=== PATIENT | male | born 2000 | race Hispanic/Latino ===

== ENCOUNTER 2019-05-07 21:14 | Inpatient (IN) | payer SELFPAY ==
[2019-05-07] MEDS ORDERED: Ondansetron PF 4 MG/2 ML Vial ONE (21:41)
[2019-05-07 22:09] LABS: Band 2 % (5-11); Hemoglobin 19.3 g/dL (14.0-18.0); Lymphocytes 2 % (28-48); MDiff Complete? YES; Mean Corpuscular Hemoglobin 29.8 pg (25.0-35.0); Mean Corpuscular Volume 87.6 fL (78.0-98.0); Mean Platelet Volume 7.9 fL (7.4-10.4); Monocytes 4 % (0-4); Neutrophil 92 % (31-61); Platelet Count 394 thou/uL (130-400); RBC Distribution Width 12.5 % (11.5-14.5); Red Blood Cell (RBC) Count 6.48 mill/uL (4.00-5.20); White Blood Cell (WBC) Count 21.6 thou/uL (4.8-10.8)
[2019-05-07 22:11] LABS: ALT (SGPT) 25 U/L (8-55); AST (SGOT) 29 U/L (10-45); Alkaline Phosphatase 145 U/L (Less than 750); Anion Gap 33 mmol/L (10-20); BUN (Urea Nitrogen) 17 mg/dL (8.4-21.0); Bilirubin, Total 1.1 mg/dL (0.2-1.2); CK (CPK) 237 U/L (30-200); Calc. Creatinine Clearance 0 mL/min (70-130); Carbon Dioxide 24 mmol/L (22-29); Chloride 90 mmol/L (98-107); Estimated GFR-MDRD 23; Glucose 168 mg/dL (70-105); Potassium 3.7 mmol/L (3.5-5.1); Sodium 143 mmol/L (136-145)
[2019-05-07 22:13] LABS: Albumin Greater than 6.2 g/dL (3.5-5.0); Calcium 13.1 mg/dL (7.8-10.44); Globulin 5.8 g/dL (2.4-3.5)
[2019-05-07] MEDS ORDERED: Morphine 4 MG/ML VIAL ONE (22:25)
[2019-05-08] MEDS ORDERED: Sodium Chloride 0.9% 1,000 ML IV SCH (02:03)
[2019-05-08 02:08] VITALS: BMI 24.3
[2019-05-08] MEDS ORDERED: Acetaminophen 500 MG TAB PO PRN (02:54)
[2019-05-08] MEDS ORDERED: Senokot S 8.6-50 MG TAB PO PRN (03:18)
[2019-05-08] MEDS ORDERED: Loperamide HCl 2 MG CAP PO PRN (03:18)
[2019-05-08] MEDS ORDERED: Zolpidem Tartrate 5 MG TAB PO PRN (03:18)
[2019-05-08] MEDS ORDERED: Ondansetron PF 4 MG/2 ML Vial IVP PRN ×2 (03:18→03:47)
[2019-05-08] MEDS ORDERED: Acetaminophen 325 MG TAB PO PRN (03:18)
[2019-05-08] MEDS ORDERED: Bisacodyl 10 MG SUPP PR PRN (03:18)
[2019-05-08] MEDS ORDERED: Ondansetron ODT 4 MG TAB PO PRN (03:18)
[2019-05-08] MEDS ORDERED: HYDROcodone/Acetaminophen 5/325 mg Tablet PO PRN (03:18)
[2019-05-08] MEDS ORDERED: Ondansetron ODT 4 MG TAB SL PRN (03:47)
--- NOTE | 2019-05-08 04:18 | HP ---
PRIMARY CARE PHYSICIAN: [facility]. REASON FOR ADMISSION: Acute kidney failure. HISTORY OF PRESENT ILLNESS: A 18-year-old male who was initially evaluated at [facility] Emergency Room. The patient went there for acute onset of nausea, vomiting, and cramps. 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 It was very hot entire day and he worked almost entire day. He also reports that he drinks less fluid than normal. He was not used to with this type of work as well. When he finished work and he was going back to home, on the way, he started feeling bad, he was having nausea, vomiting, and cramps. He went home. He took shower, and subsequently, he was experiencing right-sided chest cramps, body cramps, nausea, and vomiting. He was not able to keep anything down and that is why he was taken to local emergency room where he had routine blood test done, which showed acute kidney failure. The patient denies any NSAID abuse. He denies any chronic bone pain. He denies any diarrhea. He denies any constipation. He denies any fever, chills, UTI symptoms. He was pretty much healthy. REVIEW OF SYSTEMS: CONSTITUTIONAL: Negative for weight loss or gain, ability to conduct usual activities. SKIN: Negative for rash, itching. EYES: Negative for double vision, pain. ENT/MOUTH: Negative for nose bleeding, neck stiffness, pain, tenderness. CARDIOVASCULAR: Negative for palpitations, dyspnea on exertion, orthopnea. RESPIRATORY: Negative for shortness of breath, wheezing, cough, hemoptysis, fever or night sweats. GASTROINTESTINAL: Negative for poor appetite, abdominal pain, heartburn, nausea, vomiting, constipation, or diarrhea. GENITOURINARY: Negative for urgency, frequency, dysuria, nocturia. MUSCULOSKELETAL: Negative for pain, swelling. NEUROLOGIC/PSYCHIATRIC: Negative for anxiety, depression. ALLERGY/IMMUNOLOGIC: Negative for skin rash, bleeding tendency. Please see my HPI for pertinent positives and negatives. All other review of systems reviewed and negative except as mentioned in the HPI. PAST MEDICAL HISTORY: Reviewed and negative. PAST SURGICAL HISTORY: Reviewed and negative. PAST PSYCHIATRIC HISTORY: Reviewed and negative. SOCIAL HISTORY: The patient is working 2 jobs, partly in [employer] business as well as he also does other job. He denies any smoking. He denies any alcohol abuse. He denies any other illicit drug abuse. FAMILY HISTORY: No family history of coronary artery disease, stroke, or cancer. ALLERGIES: NO KNOWN DRUG ALLERGIES. CURRENT HOME MEDICATIONS: The patient is not taking any medication at home. EMERGENCY ROOM COURSE: The patient was given total 3 L of IV fluid, morphine 2 mg, and Zofran 4 mg. PHYSICAL EXAMINATION: VITAL SIGNS: On arrival, blood pressure 105/87, pulse 108, respiratory rate 16, temperature 98.3, saturation 97% on room air. Weight 63 kg. GENERAL: The patient is currently alert, oriented, no acute distress. HEENT: Head is normocephalic, atraumatic. Eyes; pupils are round and reactive to light. Extraocular muscle intact. ENT; oropharynx within normal limits. Moist mucous membranes. No oral lesions. No pharyngeal erythema. No exudate. NECK: Supple. No JVD. No thyromegaly. No carotid bruit. No jugular venous distention. LUNGS: Clear to auscultation without any rhonchi or rales. CARDIAC: S1 and S2, regular. No murmur. No gallop. No rub. ABDOMEN: Soft. Bowel sounds present. Nontender. Nondistended. No organomegaly. No mass. No suprapubic tenderness. CHEST WALL: The patient does have chest wall tenderness on the right lower quadrant. BACK: Unremarkable. No CVA tenderness. EXTREMITIES: Upper extremities; passive movement of all joints are normal. Lower extremities, no edema. Good distal pulsation. SKIN: No skin rash. HEMATOLOGICAL SYSTEM: No lymphadenopathy. PSYCHIATRIC: Normal affect. NEUROLOGIC: Nonfocal examination. SIGNIFICANT LABORATORY DATA: EKG showing normal sinus rhythm, within normal limit. CBC; WBC 21.6, hemoglobin 19.3, platelets 394 with left shift. BMP; sodium 143, potassium 3.7, chloride 90, carbon dioxide 24, anion gap 33, BUN 17, creatinine 3.48, glucose 168, calcium 13.1, osmolality 305. LFT; AST 29, ALT 25, alkaline phosphatase 145, CK 237, total protein 12.0, albumin greater than 6.2, globulin 5.8, lipase 9. ASSESSMENT AND PLAN: 1. Acute kidney failure, most likely related with dehydration from working in hot humid weather entire day, prerenal etiology. 2. Hypercalcemia, most likely related with dehydration. 3. Hyperproteinemia, likely related with dehydration. 4. Rhabdomyolysis, likely related with exertion of all activity in hot humid weather. 5. Leukocytosis with left shift and elevated hemoglobin, likely due to hemoconcentration and stress response. PLAN: 1. The patient will be admitted to the hospital. He will be given IV fluid at 150 mL/h. Given his sick hypercalcemia, hyperproteinemia, and acute kidney failure, we will check serum protein electrophoresis. The patient does not have any clinical picture of multiple myeloma, but we will exclude that possibility. We will check urine sodium, protein, creatinine, urinalysis, renal ultrasound, and Nephrology consultation. We will monitor renal function daily. We will avoid nephrotoxins agent. We will monitor input and output chart. 2. Deep venous thrombosis prophylaxis with heparin 5000 units subcu b.i.d. and GI prophylaxis with Pepcid 20 mg daily. CODE STATUS: The patient is full code. The patient does not have any surrogate decision maker. DISPOSITION PLAN: Based on clinical course, we are expecting the patient's stay in hospital more than 2 midnights. Plan of care discussed with the patient in detail. Job ID: [id number]
[2019-05-08] MEDS: Sodium Chloride 0.9% 1,000 ML IV SCH ×4 (04:47→15:38)
[2019-05-08 05:09] LABS: Phosphorus 5.1 mg/dL (2.3-4.7)
[2019-05-08 05:16] LABS: ALT (SGPT) 15 U/L (8-55); AST (SGOT) 22 U/L (10-45); Alkaline Phosphatase 91 U/L (Less than 750); Anion Gap 15 mmol/L (10-20); BUN (Urea Nitrogen) 17 mg/dL (8.4-21.0); CK (CPK) 469 U/L (30-200); Calc. Creatinine Clearance 78 mL/min (70-130); Calcium 9.7 mg/dL (7.8-10.44); Carbon Dioxide 30 mmol/L (22-29); Chloride 98 mmol/L (98-107); Estimated GFR-MDRD 64; Globulin 2.5 g/dL (2.4-3.5); Glucose 113 mg/dL (70-105); Potassium 4.4 mmol/L (3.5-5.1); Protein, Total 7.5 g/dL (6.0-8.3); Sodium 139 mmol/L (136-145)
[2019-05-08 06:02] LABS: #Lymphocytes 0.9 thou/uL (1.20-3.40); #Monocytes 0.7 thou/uL (0.11-0.59); %Basophils 0.3 % (0.0-1.0); %Eosinophils 0.1 % (0.0-10.0); %Lymphocytes 6.2 % (28.0-48.0); %Monocytes 5.2 % (0.0-4.0); %Neutrophils 88.3 % (31.0-61.0); Hemoglobin 14.3 g/dL (14.0-18.0); Mean Corpuscular HGB CONC 33.7 g/dL (32.0-36.0); Mean Corpuscular Hemoglobin 29.9 pg (25.0-35.0); Mean Corpuscular Volume 88.7 fL (78.0-98.0); Mean Platelet Volume 8.1 fL (7.4-10.4); Platelet Count 271 thou/uL (130-400); RBC Distribution Width 12.1 % (11.5-14.5); Red Blood Cell (RBC) Count 4.78 mill/uL (4.00-5.20); White Blood Cell (WBC) Count 13.6 thou/uL (4.8-10.8)
[2019-05-08] MEDS: Heparin 5,000 UNITS/ML VIAL SC SCH ×2 (08:18→20:42)
[2019-05-08] MEDS: Famotidine 20 MG TAB PO SCH (08:18)
--- NOTE | 2019-05-08 11:16 | PDOC.HOSPP ---
- Subjective Encounter Date: 05/08/19 Encounter Time: 11:14 Subjective: Doing better. No nausea. - Objective Vital Signs & Weight: Vital Signs (12 hours) Temp Pulse Resp BP Pulse Ox 05/08/19 07:27 98.8 F 73 16 112/56 L 98 05/08/19 05:15 98.7 F 77 12 98/55 L 99 05/08/19 01:52 98.9 F 88 18 108/63 98 Weight Weight 145 lb 12.8 oz I&O: 05/07/19 05/08/19 05/09/19 06:59 06:59 06:59 Intake Total 962 Output Total 120 Balance 842 Result Diagrams: 05/08/19 04:12 05/08/19 04:12 Hospitalist ROS - Medication Medications: Active Medications Generic Name Dose Route Start Last Admin Trade Name Freq PRN Reason Stop Dose Admin Famotidine 20 mg 05/08/19 09:00 05/08/19 08:18 Pepcid PO 20 mg DAILY SLY Administration Heparin Sodium (Porcine) 5,000 units 05/08/19 09:00 05/08/19 08:18 Heparin SC 5,000 units BID SLY Administration Sodium Chloride 1,000 mls @ 150 mls/hr 05/08/19 03:30 05/08/19 08:16 Normal Saline 0.9% IV 1,000 mls .[id number] SLY Administration - Exam General Appearance: NAD, awake alert ENT: normocephalic atraumatic, no oropharyngeal lesions, moist mucosa Neck: supple, symmetric, no JVD, no thyromegaly, no lymphadenopathy, no carotid bruit Heart: RRR, no murmur, no gallops, no rubs, normal peripheral pulses Respiratory: CTAB, no wheezes, no rales, no ronchi, normal chest expansion, no tachypnea, normal percussion Gastrointestinal: soft, non-tender, non-distended, normal bowel sounds, no palpable masses, no hepatomegaly, no splenomegaly, no bruit Extremities: no cyanosis, no clubbing, no edema Extremeties - other findings: No TTP of the muscles. Skin: normal turgor, no lesions, no rashes Neurological: CN's grossly intact, normal sensation to touch, no weakness, no focal deficits, no new deficit Musculoskeletal: normal tone, normal strength, no muscle wasting Psychiatric: normal affect, normal behavior, A&O x 3 Hosp A/P (1) Dehydration Code(s): E86.0 - DEHYDRATION Status: Acute (2) Heat exhaustion Code(s): T67.5XXA - HEAT EXHAUSTION, UNSPECIFIED, INITIAL ENCOUNTER Status: Acute (3) Acute kidney failure Status: Acute (4) Hypercalcemia Code(s): E83.52 - HYPERCALCEMIA Status: Acute (5) Rhabdomyolysis Code(s): M62.82 - RHABDOMYOLYSIS Status: Acute (6) Leukocytosis Code(s): D72.829 - ELEVATED WHITE BLOOD CELL COUNT, UNSPECIFIED Status: Acute - Plan Improving. Calcium better. Renal function better. Leukocytosis likely stress reaction is improved. CK slightly up. Continue IVF. Ambulate. Recheck labs in am. Anticipate DC in am.
[2019-05-09 04:47] LABS: #Basophils 0.1 thou/uL (0.0-0.2); #Eosinphils 0.1 thou/uL (0.0-0.7); #Lymphocytes 1.9 thou/uL (1.20-3.40); #Monocytes 0.5 thou/uL (0.11-0.59); #Neutrophils 3.4 thou/uL (1.40-6.50); %Eosinophils 1.4 % (0.0-10.0); %Lymphocytes 32.2 % (28.0-48.0); %Monocytes 8.6 % (0.0-4.0); %Neutrophils 56.9 % (31.0-61.0); Hemoglobin 13.3 g/dL (14.0-18.0); Mean Corpuscular HGB CONC 32.4 g/dL (32.0-36.0); Mean Corpuscular Hemoglobin 29.2 pg (25.0-35.0); Mean Corpuscular Volume 90.3 fL (78.0-98.0); Mean Platelet Volume 7.7 fL (7.4-10.4); Platelet Count 237 thou/uL (130-400); RBC Distribution Width 12.1 % (11.5-14.5); Red Blood Cell (RBC) Count 4.57 mill/uL (4.00-5.20)
[2019-05-09 05:09] LABS: Anion Gap 11 mmol/L (10-20); BUN (Urea Nitrogen) 12 mg/dL (8.4-21.0); CK (CPK) 596 U/L (30-200); Calc. Creatinine Clearance 141 mL/min (70-130); Calcium 9.6 mg/dL (7.8-10.44); Carbon Dioxide 28 mmol/L (22-29); Chloride 106 mmol/L (98-107); Estimated GFR-MDRD Greater than 90; Glucose 88 mg/dL (70-105); Potassium 4.1 mmol/L (3.5-5.1); Sodium 141 mmol/L (136-145)
[2019-05-09 07:52] VITALS: BP 105/59; TEMP 98
[2019-05-09] MEDS: Heparin 5,000 UNITS/ML VIAL SC SCH (07:53)
[2019-05-09] MEDS: Famotidine 20 MG TAB PO SCH (07:54)
[2019-05-09] MEDS: Sodium Chloride 0.9% 1,000 ML IV SCH (07:54)
--- NOTE | 2019-05-09 08:52 | CON ---
DATE OF CONSULTATION: REQUESTING PHYSICIAN: Carole Sanchez MD REASON FOR CONSULTATION: Acute kidney injury. IMPRESSION: Acute kidney injury, this is likely prerenal in the context of intravascular depletion from dehydration. PLAN: 1. There is no need for extensive renal workup of this patient. 2. Actively rehydrate the patient and I do believe the renal function will improve. 3. Counseled the patient on the need to stay well hydrated especially walking outside in this type of heat. HISTORY OF PRESENT ILLNESS: A 18-year-old gentleman who walked outside in the heat, did not take much water, and on his way back developed nausea, vomiting, and cramps, presented to the hospital where patient was noted with acute kidney injury with creatinine above 3. The patient was started on IV fluids with improvement in the renal function. Renal has been consulted for this acute kidney injury. Otherwise, the patient does not note any other complaints or other medical history. PAST MEDICAL HISTORY: Unremarkable. MEDICATIONS: None. FAMILY HISTORY: No family history of kidney disease. SOCIAL HISTORY: Denies alcohol, tobacco, or illicit drug use. REVIEW OF SYSTEMS: As documented in the body of the history. All the other systems were reviewed and found not to be significantly related to present illness. PHYSICAL EXAMINATION: GENERAL: The patient distress, noted with the following vital signs. VITAL SIGNS: Afebrile, temperature 98.5, pulse 67, respiratory rate of 20, O2 saturation of 98% with blood pressure of . HEENT: Unremarkable. CARDIOVASCULAR: First and second heart sounds are heard. RESPIRATORY: Clear to auscultation. DIGESTIVE: Revealed a benign abdomen with positive bowel sounds. EXTREMITIES: No peripheral edema. SKIN: No new gross rash. LYMPHATICS: No peripheral lymphadenopathy. SUMMARY: A 18-year-old gentleman who got severely dehydrated and developed acute renal failure. Thank you for this consultation. We will follow with you. Job ID: [id number]
--- NOTE | 2019-05-09 18:12 | PRG ---
DATE OF SERVICE: 05/09/2019 SUBJECTIVE: The patient is seen and examined. Noted with the following vital signs. OBJECTIVE: VITAL SIGNS: Afebrile. Temperature 98, pulse 67, respiratory rate of 12, O2 saturations 98%, blood pressure 105/59. HEENT: Unremarkable. CARDIOVASCULAR SYSTEM: First and second heart sounds were heard. RESPIRATORY SYSTEM: Clear to auscultation. DIGESTIVE SYSTEM: Revealed a benign abdomen. Positive bowel sounds. EXTREMITIES: No peripheral edema. SKIN: No new gross rash. LYMPHATICS: No peripheral lymphadenopathy. IMPRESSION: Acute kidney injury, likely in the context of dehydration. PLAN: Counseled extensively on the need to stay well hydrated and avoid over exposure to heat. Job ID: [id number]
--- NOTE | 2019-05-10 06:07 | DIS ---
DATE OF ADMISSION: 05/08/2019 DATE OF DISCHARGE: 05/09/2019 DISCHARGE DIAGNOSES: 1. Dehydration. 2. Heat exhaustion. 3. Acute kidney injury. 4. Hypercalcemia. 5. Rhabdomyolysis. 6. Leukocytosis. 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 He presented to the hospital, where he was noted to have significant leukocytosis with a white count of 21.6. Hemoglobin was elevated at 19.3. Chemistries revealed a calcium of 13.1, creatinine of 3.48, CK 237. Total protein was 12 and serum osmolality was 305. The patient was diagnosed with dehydration , acute kidney injury and mild rhabdomyolysis. HOSPITAL COURSE: The patient was admitted to the hospital, given aggressive fluid hydration. His followup labs revealed a significant improvement in everything, but a slight bump in his CK. He was subsequently maintained on IV fluids. He remained symptomatically vastly improved. His vital signs were stable. On the day of discharge, his creatinine is down to 0.79. CK is up to 596. His calcium had come down to 9.7 and protein down to 7.5. These were all felt to be hemoconcentration from the dehydration. PHYSICAL EXAMINATION: VITAL SIGNS: On the day of discharge, temperature is 98.0, pulse 67, respirations 12, O2 saturation 98%, and BP 105/59. GENERAL: The patient is awake, alert, oriented, pleasant, cooperative. HEART: Regular rate and rhythm without murmurs. LUNGS: Clear bilaterally. ABDOMEN: Soft, nontender, and nondistended. EXTREMITIES: No edema. DISPOSITION: The patient will be discharged to home. DIET: He will have normal diet. ACTIVITY: His activity level should be ad sergey, but he should take it easy for a couple days. He is encouraged to continue to push fluids for a couple of days. FOLLOWUP: He is encouraged to establish with a PCP. He can return to the hospital should he have any problems prior to that time. Of note, the patient was seen in consultation by Nephrology, who did not feel there was any additional treatment or followup indicated. Job ID: [id number] MTD
[2019-05-10 14:10] LABS: A/G Ratio 1.3 (0.7-1.7); Albumin 4.1 g/dL (2.9-4.4); Alpha 1 0.3 g/dL (0.0-0.4); Alpha 2 0.7 g/dL (0.4-1.0); Beta 1.1 g/dL (0.7-1.3); Gamma 1.1 g/dL (0.4-1.8); Globulin, Total 3.1 g/dL (2.2-3.9); M-Spike Not Observed g/dL (Not Observed)
== END 2019-05-09 10:56 | disposition home or self-care (01) | DRG 683 ==
LOC: SCSER 21:14 → 2SW 05-08 01:54 → OBSVTOIN 05-08 01:54
PROVIDERS: ADMIT Internal Medicine; ATTEND Internal Medicine
DX: N17.9 Acute kidney failure, unspecified (principal); M62.82 Rhabdomyolysis; E86.0 Dehydration; E83.52 Hypercalcemia; E88.09 Other disorders of plasma-protein metabolism, not elsewhere classified; D72.828 Other elevated white blood cell count; T67.5XXA Heat exhaustion, unspecified, initial encounter
CPT/HCPCS: 36415; 80048; 80053; 82550; 83690; 83735; 83930; 84100; 84165; 85025; 93005; J1644; J2270; J2405